=== PATIENT | male | born 1985 | race American Indian/Alaskan Native ===

== ENCOUNTER 2017-04-17 17:20 | Emergency (ER) | payer SELFPAY ==
[2017-04-17] MEDS ORDERED: GLUCAGEN IM ONE (17:38)
[2017-04-17] MEDS ORDERED: GLUCAGEN ONE (17:40)
--- NOTE | 2017-04-17 17:59 | Emergency Department Report ---
ED ENT HPI - General Chief complaint: Sore Throat Stated complaint: CHOKING ON FOOD Time Seen by Provider: 04/17/17 17:44 Source: patient Mode of arrival: Ambulatory Limitations: No Limitations - History of Present Illness Initial comments: 31 yo male who comes in today due to a foreign body in the throat. He states that he was eating ribs, and he felt as if he swallowed a piece of the bone. Admits to a fullness in the anterior neck. Denies any past medical history. Vitals unremarkble. MD complaint: foreign body -: unknown (prior to arrival ) Location: throat Severity: mild Severity scale (0 -10): 2 Quality: aching Consistency: constant Improves with: none Worsens with: swallowing Context-Epistaxis: other (was eating ribs prior to arrival in the ED ) Associated Symptoms: sore throat - Related Data Allergies Allergy/AdvReac Type Severity Reaction Status Date / Time No Known Allergies Allergy Unverified 04/17/17 17:23 ED Dental HPI - General Chief complaint: Sore Throat Stated complaint: CHOKING ON FOOD Time Seen by Provider: 04/17/17 17:44 Source: patient Mode of arrival: Ambulatory Limitations: No Limitations - Related Data Allergies Allergy/AdvReac Type Severity Reaction Status Date / Time No Known Allergies Allergy Unverified 04/17/17 17:23 ED Review of Systems ROS: Stated complaint: CHOKING ON FOOD Other details as noted in HPI Constitutional: denies: chills, fever Eyes: denies: eye pain, eye discharge, vision change ENT: as per HPI, throat pain Respiratory: denies: cough, shortness of breath, wheezing Cardiovascular: denies: chest pain, palpitations Endocrine: no symptoms reported Gastrointestinal: denies: abdominal pain, nausea, diarrhea Genitourinary: denies: urgency, dysuria Musculoskeletal: denies: back pain, joint swelling, arthralgia Skin: denies: rash, lesions Neurological: denies: headache, weakness, paresthesias Psychiatric: denies: anxiety, depression Hematological/Lymphatic: denies: easy bleeding, easy bruising ED Past Medical Hx - Past Medical History Previous Medical History?: No - Surgical History Past Surgical History?: No - Social History Smoking Status: Current Every Day Smoker Substance Use Type: Alcohol ED Physical Exam - General Limitations: No Limitations General appearance: alert, in no apparent distress - Head Head exam: Present: atraumatic, normocephalic - Eye Eye exam: Present: normal appearance - ENT ENT exam: Present: mucous membranes moist - Neck Neck exam: Present: normal inspection - Respiratory Respiratory exam: Present: normal lung sounds bilaterally. Absent: respiratory distress - Cardiovascular Cardiovascular Exam: Present: tachycardia - GI/Abdominal GI/Abdominal exam: Present: soft, normal bowel sounds - Extremities Exam Extremities exam: Present: normal inspection - Back Exam Back exam: Present: normal inspection - Neurological Exam Neurological exam: Present: alert, oriented X3 - Psychiatric Psychiatric exam: Present: normal affect, normal mood - Skin Skin exam: Present: warm, dry, intact, normal color. Absent: rash ED Course Vital Signs 04/17/17 04/17/17 04/17/17 17:23 17:30 17:45 Pulse Rate 103 H 96 H Respiratory 16 16 Rate Blood Pressure 175/103 [Right] O2 Sat by Pulse 100 98 98 Oximetry 04/17/17 17:53 Pulse Rate 87 Respiratory 16 Rate Blood Pressure 140/96 [Right] O2 Sat by Pulse 98 Oximetry - Reevaluation(s) Reevaluation #1: 04/17/17 19:33 Patient states that he still feels as if something is there. Soft tissue radiographs of the neck unremarkable. Home today. ED Medical Decision Making - Radiology Data Radiology results: report reviewed (Soft tissue neck radiograph-negative ) Critical care attestation.: If time is entered above; I have spent that time in minutes in the direct care of this critically ill patient, excluding procedure time. ED Disposition Clinical Impression: Abrasion of throat, Foreign body in throat Disposition: DC-01 TO HOME OR SELFCARE Is pt being admited?: No Does the pt Need Aspirin: No Condition: Stable Instructions: Foreign Body in Pharynx (ED) Additional Instructions: Return to the ED for worsening throat pain, shortness of breath, or difficulty breathing. Time of Disposition: 19:35
--- NOTE | 2017-04-17 18:08 | XRay Report ---
FINAL REPORT EXAM: XR NECK SOFT TISSUE HISTORY: bone stuck in throat per pt TECHNIQUE: Two views soft tissue neck PRIORS: None. FINDINGS: No radiodense foreign bodies are identified. No soft tissue gas appreciated. No evidence for pharyngeal distention. Epiglottis is unremarkable. Visualized cervical spine is unremarkable. IMPRESSION: No radiodense foreign body identified. Normal soft tissue neck
[2017-04-17 19:45] VITALS: BP 122/71
== END 2017-04-17 19:47 | disposition home or self-care (01) ==
LOC: ED 17:20
DX: S10.11XA Abrasion of throat, initial encounter (principal); F17.200 Nicotine dependence, unspecified, uncomplicated; X58.XXXA Exposure to other specified factors, initial encounter; Y93.89 Activity, other specified; Y92.89 Other specified places as the place of occurrence of the external cause; Y99.8 Other external cause status
CPT/HCPCS: 70360; 96372; 99283; J1610